=== PATIENT | female | born 1955 | race Asian ===

== ENCOUNTER 2020-09-22 13:00 | Outpatient (CLI) | payer MEDICARE ==
--- NOTE | 2020-09-22 13:50 | RAD ---
2 views of the right hip: 09/22/2020 COMPARISON: None HISTORY: Hip pain for years, limited range of motion FINDINGS: There is mild/moderate superior joint space narrowing with lateral acetabular osteophyte fo rmation. No acute fracture or dislocation is seen. IMPRESSION: Degenerative joint disease. No acute fracture or evidence of dislocation is seen.
--- NOTE | 2020-09-22 13:51 | RAD ---
2 views of the left hip: 09/22/2020 COMPARISON: None HISTORY: Hip pain, fell 2 years ago FINDINGS: There is mild/moderate superior joint space narrowing involving the left hip. There is a la teral acetabular osteophyte formation. There is no displaced fracture or evidence of dislocation seen. IMPRESSION: Degenerative joint disease. No acute fracture or dislocation seen.
[2020-09-25 18:12] LABS: QuantiFERON-TB Gold Plus Negative (Negative)
== END 2020-09-22 13:01 | disposition home or self-care (01) ==
LOC: SCSRAD 13:00
PROVIDERS: ATTEND Family Medicine
DX: M25.551 Pain in right hip (principal); M25.552 Pain in left hip; M16.0 Bilateral primary osteoarthritis of hip; Z92.29 Personal history of other drug therapy
CPT/HCPCS: 36415; 86480